=== PATIENT | male | born 1990 | race Caucasian/White ===

== ENCOUNTER 2023-03-19 18:48 | Observation (INO) ==
--- NOTE | 2023-03-19 19:36 | DR.EXTPAIN ---
HPI Time seen Time Seen by Provider: 03/19/23 19:34 PCP Primary Care Physician: IGGY HPI Comment HPI Comment: Patient is 32yr old male in er with redness, streaking and pain left forearm times one day. He had laceration to right wrist 2 days ago that was repaired 2 days ago. Redness started yesterday and streaking today. Denies fever or drainage. Complaint/Symptoms Chief Complaint Doctor Comments: Redness, pain and streaking left forearm times one day. Chief Complaint:: PT AMBULATORY IN ED STATING HE CUT LEFT WRIST ON 03/17/23 HAD SUTURES HERE. NOW HAS RED STREAK GOING UP ARM. STATES HE WENT TO [facility] AND WAS TOLD TO COME TO THE ER THAT HE MAY NEED IV ANTIBIOTICS. COVID-19 Coronavirus risk:travel/contact w/high risk person: No Has patient experienced Coronavirus symptoms: No Nurses notes reviewed Nurses Notes Review: Yes Source History Provided: Patient Mode of arrival Mode of Arrival: Ambulatory Timing Onset of Chief Complaint: 03/19/23 PMH PMH Past Medical History: No Past Surgical History: No Surgical History: No History Family History History of Family Medical Conditions: Yes Family Medical History: Hypertension Social History Does patient currently use any type of tobacco product: Yes Have you used tobacco products in the last 12 months: Yes Type of Tobacco Use: Cigarettes Does any household member use tobacco: No Alcohol Use: None Do you use any recreational Drugs:: No Lives With: Family Lives Where: Home Travel Risk Coronavirus risk:travel/contact w/high risk person: No Has patient experienced Coronavirus symptoms: No Infectious screening In the last 2 months have you had wt loss of >10#?: NO Have you had fever, night sweats or hemotysis?: No Have you traveled outside the country in the last 6 months?: No Isolation: Standard ROS Review of Systems Constitutional: No Symptoms Reported; negative Fever, Weakness or Fatigue Eyes: No Symptoms Reported; negative Blurred Vision ENTM: No Symptoms Reported; negative Nose Discharge or Nose Congestion Respiratoy: No Symptoms Reported; negative Moist Cough or Short of Breath Cardiovascular: No Symptoms Reported; negative Chest Pain Gastrointestinal/Abdominal: negative Abdominal Pain, Diarrhea or Vomiting Genitourinary: No Symptoms Reported; negative Dysuria Neurological: No Symptoms Reported; negative Headache, Weakness or Dizziness Musculoskeletal: Forearm (Redness and pain left forearm.) Integumentary: Wound (Redness left wrist with intact sutures and streaking to elbow. No drainage.) Hematologic/Lymphatic: No Symptoms Reported; negative Swollen Glands Endocrine: No Symptoms Reported; negative Increased Thirst or Increased Urine Psychiatric: No Symptoms Reported All Other Systems: Reviewed and Negative PE Vital Signs Vitals: Vital Signs Temperature 99.5 F Pulse Rate 82 Respiratory Rate 19 Respiratory Rate 20 Respiratory Rate 20 Blood Pressure 155/81 O2 Sat by Pulse Oximetry 100 General Limitations: No Limitations General Appearance: Alert and In No Apparent Distress Head Head Exam: Normal Inspection and Atraumatic Eyes Eye exam: Normal Appearance; negative Scleral Icterus or Conjunctival Injection ENT ENT Exam: Normal Exam, Normal Oropharynx, Normal External Ear Exam and TM's Normal Bilaterally Neck Neck Exam: Normal Inspection and Trachea Midline; negative Tenderness Chest Chest Inspection: Normal Inspection and Symmetric Chest Wall Rise; negative Tenderness Respiratory Respiratory Exam: Normal Lung Sounds Bilat; negative Accessory Muscle Use, Chest Wall Tenderness or Respiratory Distress Respiratory Exam: Bilateral: Clear to Auscultation Cardiovascular Cardiovascular Exam: Regular Rate, Normal Rhythm and Normal Heart Sounds; negative Systolic Murmur or Diastolic Murmur Abdominal Exam Abdominal Exam: Normal Inspection, Normal Bowel Sounds and Soft; negative Tenderness Extremities Extremities Exam: Tenderness (Redness and tenderness left forearm with streaking.) Back Back Exam: Normal Inspection Neurological Neurological Exam: Alert and Oriented X3; negative Motor Sensory Deficit Psychiatric Psychiatric Exam: Normal Affect and Normal Mood Skin Skin Exam: Other (Redness and streaking left forearm with tenderness.) MDM Differential Diagnosis Differential Diagnosis: Laceration (Infected laceration left wrist.) and Other (Cellulitis left forearm.) COURSE Treatment Treatment: See orders done while patient was in er. Labs discussed with patient. Patient was given Clindamycin and NS while in er. He was admitted to hospital for further management. Consultation Consultation Comments: Discussed patient with dr. Rogers. He will admit patient. ROR Labs Reviewed Laboratory Results Reviewed?: Yes 03/21/23 05:13 03/21/23 05:13 Laboratory: 03/19/23 20:00 Blood Blood Culture - Preliminary 03/19/23 19:50 Blood Blood Culture - Preliminary WBC 8.8 X10^3/uL (3.6-10.0) 03/19/23 19:50 RBC 4.69 X10^6/uL (4.7-6.0) L 03/19/23 19:50 Hgb 14.0 g/dL (13.5-18.0) 03/19/23 19:50 Hct 40.2 % (42.0-54.0) L 03/19/23 19:50 MCV 85.9 fL (80.0-100.0) 03/19/23 19:50 MCH 29.8 pg (27.0-34.0) 03/19/23 19:50 MCHC 34.7 g/dL (33.0-35.0) 03/19/23 19:50 RDW 13.3 % (11.6-16.5) 03/19/23 19:50 Plt Count 213 X10^3/uL (150.0-450.0) 03/19/23 19:50 MPV 10.3 fL (7.4-11.0) 03/19/23 19:50 Neut % (Auto) 59.9 % (42.0-75.0) 03/19/23 19:50 Lymph % (Auto) 29.4 % (21.0-51.0) 03/19/23 19:50 [place] % (Auto) 8.2 % (0.0-13.0) 03/19/23 19:50 Eos % (Auto) 1.0 % (0.9-2.9) 03/19/23 19:50 Baso % (Auto) 1.5 % (0.2-1.0) H 03/19/23 19:50 Neut # (Auto) 5.3 x10^3/uL (2.2-4.8) H 03/19/23 19:50 Lymph # (Auto) 2.6 X10^3/uL (1.3-2.9) 03/19/23 19:50 [place] # (Auto) 0.7 x10^3/uL (0.3-0.8) 03/19/23 19:50 Eos # (Auto) 0.1 x10^3/uL (0.0-0.2) 03/19/23 19:50 Baso # (Auto) 0.1 X10^3/uL (0.0-0.1) 03/19/23 19:50 Absolute Nucleated RBC 0.0 /100WBC 03/19/23 19:50 Sodium 138 mmol/L (136-145) 03/19/23 19:50 Corrected Sodium TNP 03/19/23 19:50 Potassium 3.5 mmol/L (3.5-5.1) 03/19/23 19:50 Chloride 100 mmol/L (98-107) 03/19/23 19:50 Carbon Dioxide 28.3 mmol/L (21-32) 03/19/23 19:50 BUN 11 mg/dL (7-18) 03/19/23 19:50 Creatinine 0.96 mg/dL (0.70-1.30) 03/19/23 19:50 Est GFR (MDRD) Af Amer > 60 (>60) 03/19/23 19:50 Est GFR (MDRD) Non-Af > 60 (>60) 03/19/23 19:50 Glucose 103 mg/dL (65-99) H 03/19/23 19:50 Calcium 8.6 mg/dL (8.5-10.1) 03/19/23 19:50 Corrected Calcium TNP 03/19/23 19:50 Total Bilirubin 0.30 mg/dL (0.2-1.0) 03/19/23 19:50 AST 20 Units/L (15-37) 03/19/23 19:50 ALT 37 Units/L (12-78) 03/19/23 19:50 Alkaline Phosphatase 112 Units/L (46-116) 03/19/23 19:50 Total Protein 7.4 g/dL (6.4-8.2) 03/19/23 19:50 Albumin 3.9 g/dL (3.4-5.0) 03/19/23 19:50 Globulin 3.5 g/dL (2.5-4.5) 03/19/23 19:50 Albumin/Globulin Ratio 1.1 Ratio (1.1-2.1) 03/19/23 19:50 Opioid Opioid Risk Tool Age (Arnulfo box if 16-45): Yes History of Preadolescent Sexual Abuse: No Total: 1 Total Score Risk Category: Low Risk Copyright: Tom CORONEL predicting aberrant behaviors Discharge Plan Diagnosis Discharge Problem: Cellulitis, Infected wound Discharge Plan Patient Disposition: ADMITTED INPATIENT Condition: Stable Discharge Comment: RETURN TO ER IF WORSE. Orders to Discharge Patient Discharge Orders: Discharge (Routine); Ordered 03/21/23 Ordered By: JEANMARIE ROGERS
[2023-03-19] MEDS ORDERED: TORADOL 30 MG VIAL IVP ONE (19:39)
[2023-03-19] MEDS ORDERED: CLEOCIN 600 MG IV PREMIX 600 MG/50 ML BAG IV ONE ×2 (19:39→19:54)
[2023-03-19] MEDS ORDERED: TORADOL 30 MG VIAL ONE (19:54)
[2023-03-19 20:07] LABS: BASOPHILS # (AUTO) 0.1 X10^3/uL (0.0-0.1); BASOPHILS % (AUTO) 1.5 % (0.2-1.0); EOSINOPHILS # (AUTO) 0.1 x10^3/uL (0.0-0.2); HEMATOCRIT 40.2 % (42.0-54.0); LYMPHOCYTES # (AUTO) 2.6 X10^3/uL (1.3-2.9); LYMPHOCYTES % (AUTO) 29.4 % (21.0-51.0); MEAN CORPUSCULAR HEMOGLOBIN 29.8 pg (27.0-34.0); MEAN CORPUSCULAR HGB CONC 34.7 g/dL (33.0-35.0); MEAN CORPUSCULAR VOLUME 85.9 fL (80.0-100.0); MEAN PLATELET VOLUME 10.3 fL (7.4-11.0); MONOCYTES # (AUTO) 0.7 x10^3/uL (0.3-0.8); MONOCYTES % (AUTO) 8.2 % (0.0-13.0); NEUTROPHILS # (AUTO) 5.3 x10^3/uL (2.2-4.8); NEUTROPHILS % (AUTO) 59.9 % (42.0-75.0); PLATELET COUNT 213 X10^3/uL (150.0-450.0); RED BLOOD COUNT 4.69 X10^6/uL (4.7-6.0); RED CELL DISTRIBUTION WIDTH 13.3 % (11.6-16.5); WHITE BLOOD COUNT 8.8 X10^3/uL (3.6-10.0)
[2023-03-19 20:20] LABS: ALANINE AMINOTRANSFERASE 37 Units/L (12-78); ALBUMIN 3.9 g/dL (3.4-5.0); ALKALINE PHOSPHATASE 112 Units/L (46-116); ASPARTATE AMINO TRANSFERASE 20 Units/L (15-37); BLOOD UREA NITROGEN 11 mg/dL (7-18); CALCIUM 8.6 mg/dL (8.5-10.1); CARBON DIOXIDE 28.3 mmol/L (21-32); CHLORIDE 100 mmol/L (98-107); CREATININE 0.96 mg/dL (0.70-1.30); GLUCOSE 103 mg/dL (65-99); POTASSIUM 3.5 mmol/L (3.5-5.1); SODIUM 138 mmol/L (136-145); TOTAL PROTEIN 7.4 g/dL (6.4-8.2); eGFR NON BLACK RACES > 60 (>60)
[2023-03-19] MEDS ORDERED: ZOFRAN TAB 4 MG PO PRN (21:58)
[2023-03-19] MEDS ORDERED: VANCOMYCIN IV *PREMIX 1 G/200 ML BAG 1 G/200 ML PIGGYBACK IV ONE ×2 (21:58→21:59)
[2023-03-19] MEDS ORDERED: NS 1,000 ML IV 1,000 ML ONE (22:13)
[2023-03-19] MEDS ORDERED: TORADOL 30 MG VIAL IVP PRN (22:16)
[2023-03-19] MEDS: NS 1,000 ML IV 1,000 ML IV SCH (22:18)
[2023-03-19] MEDS ORDERED: PHARMACY CONSULT - VANCOMYCIN XX SCH (23:00)
[2023-03-19 23:05] VITALS: BMI 29.7
[2023-03-20 05:05] LABS: BASOPHILS # (AUTO) 0.1 X10^3/uL (0.0-0.1); BASOPHILS % (AUTO) 0.9 % (0.2-1.0); EOSINOPHILS # (AUTO) 0.1 x10^3/uL (0.0-0.2); EOSINOPHILS % (AUTO) 2.1 % (0.9-2.9); HEMATOCRIT 35.7 % (42.0-54.0); HEMOGLOBIN 12.6 g/dL (13.5-18.0); LYMPHOCYTES # (AUTO) 3.1 X10^3/uL (1.3-2.9); LYMPHOCYTES % (AUTO) 44.8 % (21.0-51.0); MEAN CORPUSCULAR HEMOGLOBIN 30.2 pg (27.0-34.0); MEAN CORPUSCULAR HGB CONC 35.3 g/dL (33.0-35.0); MEAN CORPUSCULAR VOLUME 85.7 fL (80.0-100.0); MEAN PLATELET VOLUME 10.4 fL (7.4-11.0); MONOCYTES # (AUTO) 0.8 x10^3/uL (0.3-0.8); MONOCYTES % (AUTO) 11.6 % (0.0-13.0); NEUTROPHILS # (AUTO) 2.8 x10^3/uL (2.2-4.8); NEUTROPHILS % (AUTO) 40.6 % (42.0-75.0); PLATELET COUNT 192 X10^3/uL (150.0-450.0); RED BLOOD COUNT 4.17 X10^6/uL (4.7-6.0); RED CELL DISTRIBUTION WIDTH 13.5 % (11.6-16.5); WHITE BLOOD COUNT 6.9 X10^3/uL (3.6-10.0)
[2023-03-20 05:16] LABS: ALANINE AMINOTRANSFERASE 36 Units/L (12-78); ALBUMIN 3.2 g/dL (3.4-5.0); ALKALINE PHOSPHATASE 96 Units/L (46-116); ASPARTATE AMINO TRANSFERASE 19 Units/L (15-37); BLOOD UREA NITROGEN 15 mg/dL (7-18); CALCIUM 8.3 mg/dL (8.5-10.1); CARBON DIOXIDE 27.6 mmol/L (21-32); CHLORIDE 104 mmol/L (98-107); COR CA(FOR HYPOALB) 8.9 mg/dL (8.5-10.1); COR NA(FOR HYPERGLY) 141 mmol/L (136-145); CREATININE 0.86 mg/dL (0.70-1.30); GLUCOSE 116 mg/dL (65-99); POTASSIUM 3.1 mmol/L (3.5-5.1); SODIUM 141 mmol/L (136-145); TOTAL PROTEIN 6.2 g/dL (6.4-8.2); eGFR NON BLACK RACES > 60 (>60)
[2023-03-20] MEDS ORDERED: CONSULT PHARMACY - POTASSIUM & MAGNESIUM XX SCH (06:00)
[2023-03-20] MEDS: NS 1,000 ML IV 1,000 ML IV SCH ×5 (08:52→21:19)
[2023-03-20] MEDS: K-DUR TAB 20 MEQ PO SCH ×2 (08:55→11:21)
[2023-03-20] MEDS: VANCOMYCIN IV *PREMIX 1.75 G/350 ML BAG 1.75 G/350 ML PIGGYBACK IV SCH ×2 (08:55→20:10)
[2023-03-20] MEDS ORDERED: VANCOMYCIN IV *PREMIX 1 G/200 ML BAG 1 G/200 ML PIGGYBACK IV SCH (09:00)
[2023-03-21 04:03] VITALS: RESP 18
[2023-03-21] MEDS: NS 1,000 ML IV 1,000 ML IV SCH (05:00)
[2023-03-21 06:22] LABS: BASOPHILS # (AUTO) 0.1 X10^3/uL (0.0-0.1); BASOPHILS % (AUTO) 1.1 % (0.2-1.0); EOSINOPHILS # (AUTO) 0.2 x10^3/uL (0.0-0.2); EOSINOPHILS % (AUTO) 2.4 % (0.9-2.9); HEMATOCRIT 35.4 % (42.0-54.0); HEMOGLOBIN 12.3 g/dL (13.5-18.0); LYMPHOCYTES # (AUTO) 3.1 X10^3/uL (1.3-2.9); LYMPHOCYTES % (AUTO) 40.6 % (21.0-51.0); MEAN CORPUSCULAR HEMOGLOBIN 29.8 pg (27.0-34.0); MEAN CORPUSCULAR HGB CONC 34.7 g/dL (33.0-35.0); MEAN CORPUSCULAR VOLUME 85.9 fL (80.0-100.0); MEAN PLATELET VOLUME 11.1 fL (7.4-11.0); MONOCYTES # (AUTO) 0.7 x10^3/uL (0.3-0.8); MONOCYTES % (AUTO) 9.2 % (0.0-13.0); NEUTROPHILS # (AUTO) 3.6 x10^3/uL (2.2-4.8); NEUTROPHILS % (AUTO) 46.7 % (42.0-75.0); PLATELET COUNT 181 X10^3/uL (150.0-450.0); RED BLOOD COUNT 4.13 X10^6/uL (4.7-6.0); RED CELL DISTRIBUTION WIDTH 13.4 % (11.6-16.5); WHITE BLOOD COUNT 7.7 X10^3/uL (3.6-10.0)
[2023-03-21 06:30] LABS: ALANINE AMINOTRANSFERASE 38 Units/L (12-78); ALBUMIN 3.1 g/dL (3.4-5.0); ALKALINE PHOSPHATASE 90 Units/L (46-116); ASPARTATE AMINO TRANSFERASE 19 Units/L (15-37); BLOOD UREA NITROGEN 9 mg/dL (7-18); CARBON DIOXIDE 26.5 mmol/L (21-32); CHLORIDE 105 mmol/L (98-107); COR CA(FOR HYPOALB) 8.7 mg/dL (8.5-10.1); CREATININE 0.85 mg/dL (0.70-1.30); GLUCOSE 109 mg/dL (65-99); POTASSIUM 3.6 mmol/L (3.5-5.1); SODIUM 139 mmol/L (136-145); TOTAL PROTEIN 6.1 g/dL (6.4-8.2); eGFR NON BLACK RACES > 60 (>60)
[2023-03-21] MEDS ORDERED: CONSULT PHARMACY - POTASSIUM & MAGNESIUM XX SCH (07:00)
--- NOTE | 2023-03-21 07:48 | DR.H&P ---
H&P History & Physical for Day of: H&P Date: 03/20/23 Chief Complaint Chief Complaint: Infected right forearm from cut on right wrist Allergies Allergies Allergy/AdvReac Type Severity Reaction Status Date / Time No Known Allergies Allergy Verified 03/19/23 19:02 History of Present Illness History of Present Illness: This is a pleasant 32-year-old white male who was seen in the vacate emergency department few days ago after he had cut his right wrist at work. Since then has gotten infected and he went to [facility] and they told him he needed to come [facility] for IV antibiotics. When he arrived to the ER he had some red streak going up his right arm and erythema of the right forearm that was marked. However this morning after IV antibiotics it is much improved and we will plan on getting 1 more day of IV antibiotics prior to discharge. Past Surgical History Surgical History: No History Family History Family Medical History: Hypertension Social History Does patient currently use any type of tobacco product: Yes Have you used tobacco products in the last 12 months: Yes Type of Tobacco Use: Cigarettes Does any household member use tobacco: No Alcohol Use: None Drug Use: None Labs 03/21/23 05:13 03/21/23 05:13 Labs: Laboratory WBC 7.7 X10^3/uL (3.6-10.0) 03/21/23 05:13 RBC 4.13 X10^6/uL (4.7-6.0) L 03/21/23 05:13 Hgb 12.3 g/dL (13.5-18.0) L 03/21/23 05:13 Hct 35.4 % (42.0-54.0) L 03/21/23 05:13 MCV 85.9 fL (80.0-100.0) 03/21/23 05:13 MCH 29.8 pg (27.0-34.0) 03/21/23 05:13 MCHC 34.7 g/dL (33.0-35.0) 03/21/23 05:13 RDW 13.4 % (11.6-16.5) 03/21/23 05:13 Plt Count 181 X10^3/uL (150.0-450.0) 03/21/23 05:13 MPV 11.1 fL (7.4-11.0) H 03/21/23 05:13 Neut % (Auto) 46.7 % (42.0-75.0) 03/21/23 05:13 Lymph % (Auto) 40.6 % (21.0-51.0) 03/21/23 05:13 [place] % (Auto) 9.2 % (0.0-13.0) 03/21/23 05:13 Eos % (Auto) 2.4 % (0.9-2.9) 03/21/23 05:13 Baso % (Auto) 1.1 % (0.2-1.0) H 03/21/23 05:13 Neut # (Auto) 3.6 x10^3/uL (2.2-4.8) 03/21/23 05:13 Lymph # (Auto) 3.1 X10^3/uL (1.3-2.9) H 03/21/23 05:13 [place] # (Auto) 0.7 x10^3/uL (0.3-0.8) 03/21/23 05:13 Eos # (Auto) 0.2 x10^3/uL (0.0-0.2) 03/21/23 05:13 Baso # (Auto) 0.1 X10^3/uL (0.0-0.1) 03/21/23 05:13 Absolute Nucleated RBC 0.1 /100WBC 03/21/23 05:13 Sodium 139 mmol/L (136-145) 03/21/23 05:13 Corrected Sodium TNP 03/21/23 05:13 Potassium 3.6 mmol/L (3.5-5.1) 03/21/23 05:13 Chloride 105 mmol/L (98-107) 03/21/23 05:13 Carbon Dioxide 26.5 mmol/L (21-32) 03/21/23 05:13 BUN 9 mg/dL (7-18) 03/21/23 05:13 Creatinine 0.85 mg/dL (0.70-1.30) 03/21/23 05:13 Est GFR (MDRD) Af Amer > 60 (>60) 03/21/23 05:13 Est GFR (MDRD) Non-Af > 60 (>60) 03/21/23 05:13 Glucose 109 mg/dL (65-99) H 03/21/23 05:13 Calcium 8.0 mg/dL (8.5-10.1) L 03/21/23 05:13 Corrected Calcium 8.7 mg/dL (8.5-10.1) 03/21/23 05:13 Magnesium 1.8 mg/dL (2.0-2.9) L 03/21/23 05:13 Total Bilirubin 0.20 mg/dL (0.2-1.0) 03/21/23 05:13 AST 19 Units/L (15-37) 03/21/23 05:13 ALT 38 Units/L (12-78) 03/21/23 05:13 Alkaline Phosphatase 90 Units/L (46-116) 03/21/23 05:13 Total Protein 6.1 g/dL (6.4-8.2) L 03/21/23 05:13 Albumin 3.1 g/dL (3.4-5.0) L 03/21/23 05:13 Globulin 3.0 g/dL (2.5-4.5) 03/21/23 05:13 Albumin/Globulin Ratio 1.0 Ratio (1.1-2.1) L 03/21/23 05:13 Review of Systems Constitutional: No Symptoms Reported Eyes: No Symptoms Reported ENT: No Symptoms Reported Respiratory: No Symptoms Reported Cardiovascular: No Symptoms Reported Gastrointestinal: No Symptoms Reported Genitourinary: No Symptoms Reported Musculoskeletal: No Symptoms Reported Skin: No Symptoms Reported Neurological: No Symptoms Reported Physical Exam Vital Signs: Vital Signs Temperature 98.3 F Temperature 98.8 F Pulse Rate [Brachial] 62 Pulse Rate [Brachial] 63 Respiratory Rate 18 Respiratory Rate 20 Blood Pressure [Right Arm] 143/70 Blood Pressure [Right Arm] 162/65 O2 Sat by Pulse Oximetry 98 O2 Sat by Pulse Oximetry 98 Oriented: Normal Eyes: Normal Ear: Normal Nose: Normal Respiratory: Clear Throughout Cardiovascular: Normal : Normal Auscultation: Bowel Sounds: Normal Palpation: Normal Tenderness: Normal Skin: Other (Mild right erythema on the right anterior forearm which is improved since admission) Musculoskeletal: Normal Psychiatric: Normal Mood Description: Calm Affect: Normal Speech Pattern: Clear and Appropriate Assessment/Plan (1) Cellulitis: Status: Acute Plan: Continue IV vancomycin and clindamycin. (2) Infected wound: Status: Acute Plan: Continue IV clindamycin and vancomycin Review H&P Reviewed: Yes Patient was examined?: Yes
[2023-03-21 08:12] VITALS: BP 129/69; PULSE 52; TEMP 97.6; O2SAT 96
[2023-03-21] MEDS: VANCOMYCIN IV *PREMIX 1.75 G/350 ML BAG 1.75 G/350 ML PIGGYBACK IV SCH (08:36)
[2023-03-21] MEDS ORDERED: K-DUR TAB 20 MEQ PO SCH (09:00)
[2023-03-21] MEDS ORDERED: PHARMACY COMMENT IV NR (20:30)
== END 2023-03-21 11:40 | disposition home or self-care (01) ==
LOC: MED/SURG 18:48 → ER 18:48 → MED/SURG 22:33
PROVIDERS: ADMIT Family Medicine; ATTEND Family Medicine
DX: L08.89 Other specified local infections of the skin and subcutaneous tissue; L03.113 Cellulitis of right upper limb

== ENCOUNTER 2023-04-04 21:26 | Inpatient (IN) ==
[2023-04-04 21:48] VITALS: BMI 29.6
[2023-04-04 22:13] LABS: BASOPHILS # (AUTO) 0.1 X10^3/uL (0.0-0.1); BASOPHILS % (AUTO) 0.9 % (0.2-1.0); EOSINOPHILS # (AUTO) 0.1 x10^3/uL (0.0-0.2); EOSINOPHILS % (AUTO) 1.2 % (0.9-2.9); HEMOGLOBIN 13.8 g/dL (13.5-18.0); LYMPHOCYTES # (AUTO) 3.5 X10^3/uL (1.3-2.9); LYMPHOCYTES % (AUTO) 33.1 % (21.0-51.0); MEAN CORPUSCULAR HGB CONC 35.4 g/dL (33.0-35.0); MEAN CORPUSCULAR VOLUME 84.7 fL (80.0-100.0); MONOCYTES # (AUTO) 1.1 x10^3/uL (0.3-0.8); MONOCYTES % (AUTO) 10.7 % (0.0-13.0); NEUTROPHILS # (AUTO) 5.7 x10^3/uL (2.2-4.8); NEUTROPHILS % (AUTO) 54.1 % (42.0-75.0); PLATELET COUNT 223 X10^3/uL (150.0-450.0); RED CELL DISTRIBUTION WIDTH 13.7 % (11.6-16.5); WHITE BLOOD COUNT 10.5 X10^3/uL (3.6-10.0)
[2023-04-04 22:16] LABS: INR 1.03 (0.8-1.3)
[2023-04-04 22:20] LABS: ALANINE AMINOTRANSFERASE 33 Units/L (12-78); ALBUMIN 3.9 g/dL (3.4-5.0); ALKALINE PHOSPHATASE 97 Units/L (46-116); ASPARTATE AMINO TRANSFERASE 12 Units/L (15-37); BLOOD UREA NITROGEN 12 mg/dL (7-18); CALCIUM 8.3 mg/dL (8.5-10.1); CARBON DIOXIDE 27.5 mmol/L (21-32); CHLORIDE 101 mmol/L (98-107); CREATININE 1.09 mg/dL (0.70-1.30); GLUCOSE 101 mg/dL (65-99); POTASSIUM 3.2 mmol/L (3.5-5.1); SODIUM 139 mmol/L (136-145); TOTAL PROTEIN 7.6 g/dL (6.4-8.2); eGFR NON BLACK RACES > 60 (>60)
[2023-04-04 22:24] LABS: LACTIC ACID 0.8 mmol/L (0.4-2.0)
--- NOTE | 2023-04-04 22:56 | DR.EXTPAIN ---
HPI Time seen Time Seen by Provider: 04/04/23 22:55 PCP Primary Care Physician: maribel Complaint/Symptoms Chief Complaint Doctor Comments: Patient had a laceration repaired on 03/17/2023.He returned to the ED on 03/19/20 and was admitted for treatment of c ellulitis. Patient was d/c on bactrim DS and clindamycin.He went to a walk-in clinic today because of swelling and redness of the Rt forearm. Patient was told to go to the ED. Patient denies:fever,extremity weakness,extremity numbness. Chief Complaint:: pt c/o redness and swelling to rt forearm pt had laceration to rt wrist on 03/17/23 from a precision grinder external sutures applied pt has been on clindamycin and septra ds but swelling and redness started today warm to touch with redness and swelling noted to rt forearm from wrist to elbow COVID-19 Coronavirus risk:travel/contact w/high risk person: No Has patient experienced Coronavirus symptoms: No Source History Provided: Patient Mode of arrival Mode of Arrival: Ambulatory Timing Onset of Chief Complaint: 04/04/23 PMH PMH Past Medical History: No Past Surgical History: No Surgical History: No History Family History History of Family Medical Conditions: Yes Family Medical History: Hypertension Social History Does patient currently use any type of tobacco product: Yes Have you used tobacco products in the last 12 months: Yes Type of Tobacco Use: Cigarettes Does any household member use tobacco: Yes Alcohol Use: None and Rarely Do you use any recreational Drugs:: No Lives With: Family Lives Where: Home Travel Risk Coronavirus risk:travel/contact w/high risk person: No Has patient experienced Coronavirus symptoms: No Infectious screening In the last 2 months have you had wt loss of >10#?: NO Have you had fever, night sweats or hemotysis?: No Have you traveled outside the country in the last 6 months?: No Isolation: Standard ROS Review of Systems Constitutional: negative Fever Eyes: No Symptoms Reported ENTM: No Symptoms Reported Respiratoy: No Symptoms Reported Cardiovascular: No Symptoms Reported Gastrointestinal/Abdominal: No Symptoms Reported Genitourinary: No Symptoms Reported Neurological: No Symptoms Reported Musculoskeletal: No Symptoms Reported, Joint Swelling (and erythema), Right and Forearm (swelling and erythema) Integumentary: No Symptoms Reported and Change in Color (Rt forearm and Rt wrist joint) Hematologic/Lymphatic: No Symptoms Reported Endocrine: No Symptoms Reported Psychiatric: No Symptoms Reported All Other Systems: Reviewed and Negative PE Vital Signs Vitals: Vital Signs Temperature 99.8 F Pulse Rate [Right Radial] 56 Pulse Rate 79 Respiratory Rate 20 Respiratory Rate 18 Blood Pressure [Right Arm] 131/77 Blood Pressure 124/78 O2 Sat by Pulse Oximetry 98 O2 Sat by Pulse Oximetry 98 General Limitations: No Limitations General Appearance: Alert and In No Apparent Distress Head Head Exam: Normal Inspection Eyes Eye exam: Normal Appearance ENT ENT Exam: Normal Exam Neck Neck Exam: Normal Inspection Chest Chest Inspection: Normal Inspection Respiratory Respiratory Exam: Normal Lung Sounds Bilat Respiratory Exam: Bilateral: Clear to Auscultation Cardiovascular Cardiovascular Exam: Regular Rate and Normal Rhythm Abdominal Exam Abdominal Exam: Normal Inspection, Normal Bowel Sounds and Soft Extremities Extremities Exam: Normal Inspection and Joint Swelling (Rt wrist joint) Upper Extremities Forearm Exam: Swelling (Rt forearm and wrist) and Erythema (Rt forearm and wrist) Back Back Exam: Normal Inspection Neurological Neurological Exam: Alert, Oriented X3 and CN II-XII Intact Psychiatric Psychiatric Exam: Normal Affect and Normal Mood Skin Skin Exam: Warm, Dry, Intact and Normal Color MDM Differential Diagnosis Differential Diagnosis: Other (Cellulitis,Abscess) COURSE Treatment Treatment: Patient presents with recurrent Cellulitis Rt forearm and wrist.Patient was given vancomycin 1500mg iv in the ED. Discussed case with Dr Rogers.Dr Rogers has accepted patient to his service. Patient has been stable in the ED ROR Labs Reviewed Laboratory Results Reviewed?: Yes 04/04/23 22:00 04/04/23 22:00 Laboratory: WBC 10.5 X10^3/uL (3.6-10.0) H 04/04/23 22:00 RBC 4.60 X10^6/uL (4.7-6.0) L 04/04/23 22:00 Hgb 13.8 g/dL (13.5-18.0) 04/04/23 22:00 Hct 39.0 % (42.0-54.0) L 04/04/23 22:00 MCV 84.7 fL (80.0-100.0) 04/04/23 22:00 MCH 30.0 pg (27.0-34.0) 04/04/23 22:00 MCHC 35.4 g/dL (33.0-35.0) H 04/04/23 22:00 RDW 13.7 % (11.6-16.5) 04/04/23 22:00 Plt Count 223 X10^3/uL (150.0-450.0) 04/04/23 22:00 MPV 10.0 fL (7.4-11.0) 04/04/23 22:00 Neut % (Auto) 54.1 % (42.0-75.0) 04/04/23 22:00 Lymph % (Auto) 33.1 % (21.0-51.0) 04/04/23 22:00 [place] % (Auto) 10.7 % (0.0-13.0) 04/04/23 22:00 Eos % (Auto) 1.2 % (0.9-2.9) 04/04/23 22:00 Baso % (Auto) 0.9 % (0.2-1.0) 04/04/23 22:00 Neut # (Auto) 5.7 x10^3/uL (2.2-4.8) H 04/04/23 22:00 Lymph # (Auto) 3.5 X10^3/uL (1.3-2.9) H 04/04/23 22:00 [place] # (Auto) 1.1 x10^3/uL (0.3-0.8) H 04/04/23 22:00 Eos # (Auto) 0.1 x10^3/uL (0.0-0.2) 04/04/23 22:00 Baso # (Auto) 0.1 X10^3/uL (0.0-0.1) 04/04/23 22:00 Absolute Nucleated RBC 0.0 /100WBC 04/04/23 22:00 PT 13.3 SECONDS (11.8-14.3) 04/04/23 22:00 INR Target Range - 04/04/23 22:00 INR 1.03 (0.8-1.3) 04/04/23 22:00 APTT 29.9 SECONDS (22.9-36.5) 04/04/23 22:00 PTT Comment - 04/04/23 22:00 Sodium 139 mmol/L (136-145) 04/04/23 22:00 Corrected Sodium TNP 04/04/23 22:00 Potassium 3.2 mmol/L (3.5-5.1) L 04/04/23 22:00 Chloride 101 mmol/L (98-107) 04/04/23 22:00 Carbon Dioxide 27.5 mmol/L (21-32) 04/04/23 22:00 BUN 12 mg/dL (7-18) 04/04/23 22:00 Creatinine 1.09 mg/dL (0.70-1.30) 04/04/23 22:00 Est GFR (MDRD) Af Amer > 60 (>60) 04/04/23 22:00 Est GFR (MDRD) Non-Af > 60 (>60) 04/04/23 22:00 Glucose 101 mg/dL (65-99) H 04/04/23 22:00 Lactic Acid 0.8 mmol/L (0.4-2.0) 04/04/23 22:00 Calcium 8.3 mg/dL (8.5-10.1) L 04/04/23 22:00 Corrected Calcium TNP 04/04/23 22:00 Total Bilirubin 0.50 mg/dL (0.2-1.0) 04/04/23 22:00 AST 12 Units/L (15-37) L 04/04/23 22:00 ALT 33 Units/L (12-78) 04/04/23 22:00 Alkaline Phosphatase 97 Units/L (46-116) 04/04/23 22:00 Total Protein 7.6 g/dL (6.4-8.2) 04/04/23 22:00 Albumin 3.9 g/dL (3.4-5.0) 04/04/23 22:00 Globulin 3.7 g/dL (2.5-4.5) 04/04/23 22:00 Albumin/Globulin Ratio 1.1 Ratio (1.1-2.1) 04/04/23 22:00 Opioid Opioid Risk Tool Age (Arnulfo box if 16-45): Yes History of Preadolescent Sexual Abuse: No Total: 1 Total Score Risk Category: Low Risk Copyright: Tom CORONEL predicting aberrant behaviors Discharge Plan Diagnosis Discharge Problem: Right forearm cellulitis Discharge Plan Patient Disposition: ADMITTED INPATIENT Condition: Stable
[2023-04-04] MEDS ORDERED: VANCOMYCIN IV *PREMIX 1.5 G/300 ML BAG 1.5 G/300 ML PIGGYBACK IV ONE ×2 (22:59→23:00)
[2023-04-05] MEDS ORDERED: K-DUR TAB 20 MEQ PO ONE ×2 (00:43)
[2023-04-05] MEDS ORDERED: NS + KCL 20 MEQ/L 1,000 ML IV ONE ×2 (00:44→08:38)
[2023-04-05] MEDS: NS + KCL 20 MEQ/L 1,000 ML IV SCH ×4 (00:51→19:40)
[2023-04-05] MEDS ORDERED: PHARMACY CONSULT - VANCOMYCIN XX SCH (02:00)
[2023-04-05 05:31] LABS: BASOPHILS # (AUTO) 0.1 X10^3/uL (0.0-0.1); BASOPHILS % (AUTO) 0.9 % (0.2-1.0); EOSINOPHILS # (AUTO) 0.2 x10^3/uL (0.0-0.2); EOSINOPHILS % (AUTO) 1.9 % (0.9-2.9); HEMOGLOBIN 12.8 g/dL (13.5-18.0); LYMPHOCYTES # (AUTO) 3.1 X10^3/uL (1.3-2.9); LYMPHOCYTES % (AUTO) 33.3 % (21.0-51.0); MEAN CORPUSCULAR HEMOGLOBIN 29.7 pg (27.0-34.0); MEAN CORPUSCULAR HGB CONC 34.7 g/dL (33.0-35.0); MEAN CORPUSCULAR VOLUME 85.5 fL (80.0-100.0); MEAN PLATELET VOLUME 10.1 fL (7.4-11.0); MONOCYTES % (AUTO) 11.3 % (0.0-13.0); NEUTROPHILS # (AUTO) 4.9 x10^3/uL (2.2-4.8); NEUTROPHILS % (AUTO) 52.6 % (42.0-75.0); PLATELET COUNT 204 X10^3/uL (150.0-450.0); RED BLOOD COUNT 4.32 X10^6/uL (4.7-6.0); RED CELL DISTRIBUTION WIDTH 13.7 % (11.6-16.5); WHITE BLOOD COUNT 9.2 X10^3/uL (3.6-10.0)
[2023-04-05 05:49] LABS: ALANINE AMINOTRANSFERASE 32 Units/L (12-78); ALBUMIN 3.4 g/dL (3.4-5.0); ALKALINE PHOSPHATASE 85 Units/L (46-116); ASPARTATE AMINO TRANSFERASE 13 Units/L (15-37); BLOOD UREA NITROGEN 10 mg/dL (7-18); CALCIUM 8.1 mg/dL (8.5-10.1); CARBON DIOXIDE 24.6 mmol/L (21-32); CHLORIDE 104 mmol/L (98-107); GLUCOSE 106 mg/dL (65-99); POTASSIUM 3.7 mmol/L (3.5-5.1); SODIUM 138 mmol/L (136-145); TOTAL PROTEIN 6.9 g/dL (6.4-8.2); eGFR NON BLACK RACES > 60 (>60)
[2023-04-05] MEDS ORDERED: VANCOMYCIN IV *PREMIX 1 G/200 ML BAG 1 G/200 ML PIGGYBACK IV SCH (08:30)
[2023-04-05] MEDS ORDERED: VANCOMYCIN IV *PREMIX 1 G/200 ML BAG 1 G/200 ML PIGGYBACK IV ONE (08:35)
[2023-04-05] MEDS ORDERED: CIPRO IV 400 MG PREMIX* 400 MG/200 ML IV.SOLN. IV ONE (09:42)
[2023-04-05] MEDS: CIPRO IV 400 MG PREMIX* 400 MG/200 ML IV.SOLN. IV SCH ×2 (09:45→21:11)
[2023-04-05] MEDS ORDERED: VANCOMYCIN IV *PREMIX 1.5 G/300 ML BAG 1.5 G/300 ML PIGGYBACK IV SCH (11:00)
[2023-04-05] MEDS ORDERED: CLEOCIN 300 MG IV PREMIX 300 MG/50 ML BAG IV SCH (14:00)
[2023-04-05] MEDS ORDERED: CONSULT PHARMACY - POTASSIUM & MAGNESIUM XX SCH (14:00)
[2023-04-05] MEDS: CLEOCIN 600 MG IV PREMIX 600 MG/50 ML BAG IV SCH ×2 (14:57→22:18)
--- NOTE | 2023-04-05 21:09 | DR.H&P ---
H&P History & Physical for Day of: H&P Date: 04/05/23 Chief Complaint Chief Complaint: Right wrist infection Allergies Allergies Allergy/AdvReac Type Severity Reaction Status Date / Time No Known Allergies Allergy Verified 03/19/23 19:02 History of Present Illness History of Present Illness: This is a pleasant 36-year-old white male known to me. I had recently had him in the hospital for right wrist infection after surgical repair of the laceration and cellulitis of his right forearm. He was here in the hospital a week 2 weeks ago several days after having a surgical repair of his right wrist after a laceration at work. After his last admission he was started on IV clindamycin and vancomycin and his symptoms and condition was improving. His cellulitis was resolving however he only stayed for just over 24 hours receiving IV antibiotics. He was stated he was going to go AMA unless we released the site changing to p.o. clindamycin and Bactrim DS for 1 week and discharge him home. He tells me for a while he was getting better on the oral antibiotics and completely cleared up however but the cellulitis has returned after treatment. He was started on vancomycin IV last night in the emergency department and this morning it is much improved. I will stop that today and see if he improves on IV clindamycin and ciprofloxacin and if he does well overnight with this and his cellulitis is improving I will plan on discharging him on only his oral antibiotics. Past Surgical History Surgical History: No History Family History Family Medical History: Hypertension Social History Does patient currently use any type of tobacco product: Yes Have you used tobacco products in the last 12 months: Yes Type of Tobacco Use: Cigarettes Does any household member use tobacco: Yes Alcohol Use: None and Rarely Drug Use: None Medications Home Medications: Home Medications Medication Instructions Recorded Confirmed Type NK 04/05/23 04/05/23 History Labs 04/05/23 05:15 04/05/23 05:15 Labs: Laboratory WBC 9.2 X10^3/uL (3.6-10.0) 04/05/23 05:15 RBC 4.32 X10^6/uL (4.7-6.0) L 04/05/23 05:15 Hgb 12.8 g/dL (13.5-18.0) L 04/05/23 05:15 Hct 37.0 % (42.0-54.0) L 04/05/23 05:15 MCV 85.5 fL (80.0-100.0) 04/05/23 05:15 MCH 29.7 pg (27.0-34.0) 04/05/23 05:15 MCHC 34.7 g/dL (33.0-35.0) 04/05/23 05:15 RDW 13.7 % (11.6-16.5) 04/05/23 05:15 Plt Count 204 X10^3/uL (150.0-450.0) 04/05/23 05:15 MPV 10.1 fL (7.4-11.0) 04/05/23 05:15 Neut % (Auto) 52.6 % (42.0-75.0) 04/05/23 05:15 Lymph % (Auto) 33.3 % (21.0-51.0) 04/05/23 05:15 [place] % (Auto) 11.3 % (0.0-13.0) 04/05/23 05:15 Eos % (Auto) 1.9 % (0.9-2.9) 04/05/23 05:15 Baso % (Auto) 0.9 % (0.2-1.0) 04/05/23 05:15 Neut # (Auto) 4.9 x10^3/uL (2.2-4.8) H 04/05/23 05:15 Lymph # (Auto) 3.1 X10^3/uL (1.3-2.9) H 04/05/23 05:15 [place] # (Auto) 1.0 x10^3/uL (0.3-0.8) H 04/05/23 05:15 Eos # (Auto) 0.2 x10^3/uL (0.0-0.2) 04/05/23 05:15 Baso # (Auto) 0.1 X10^3/uL (0.0-0.1) 04/05/23 05:15 Absolute Nucleated RBC 0.0 /100WBC 04/05/23 05:15 ESR 12 MM/HOUR (0-15) 04/05/23 10:00 PT 13.3 SECONDS (11.8-14.3) 04/04/23 22:00 INR Target Range - 08/23/23 22:00 INR 1.03 (0.8-1.3) 04/04/23 22:00 APTT 29.9 SECONDS (22.9-36.5) 04/04/23 22:00 PTT Comment - 04/04/23 22:00 Sodium 138 mmol/L (136-145) 04/05/23 05:15 Corrected Sodium TNP 04/05/23 05:15 Potassium 3.7 mmol/L (3.5-5.1) 04/05/23 05:15 Chloride 104 mmol/L (98-107) 04/05/23 05:15 Carbon Dioxide 24.6 mmol/L (21-32) 04/05/23 05:15 BUN 10 mg/dL (7-18) 04/05/23 05:15 Creatinine 0.90 mg/dL (0.70-1.30) 04/05/23 05:15 Est GFR (MDRD) Af Amer > 60 (>60) 04/05/23 05:15 Est GFR (MDRD) Non-Af > 60 (>60) 04/05/23 05:15 Glucose 106 mg/dL (65-99) H 04/05/23 05:15 Lactic Acid 0.8 mmol/L (0.4-2.0) 04/04/23 22:00 Calcium 8.1 mg/dL (8.5-10.1) L 04/05/23 05:15 Corrected Calcium TNP 04/05/23 05:15 Total Bilirubin 0.70 mg/dL (0.2-1.0) 04/05/23 05:15 AST 13 Units/L (15-37) L 04/05/23 05:15 ALT 32 Units/L (12-78) 04/05/23 05:15 Alkaline Phosphatase 85 Units/L (46-116) 04/05/23 05:15 C-Reactive Protein 45.90 mg/L (0-3.0) H 04/05/23 05:15 Total Protein 6.9 g/dL (6.4-8.2) 04/05/23 05:15 Albumin 3.4 g/dL (3.4-5.0) 04/05/23 05:15 Globulin 3.5 g/dL (2.5-4.5) 04/05/23 05:15 Albumin/Globulin Ratio 1.0 Ratio (1.1-2.1) L 04/05/23 05:15 Review of Systems Constitutional: No Symptoms Reported and Fever Eyes: No Symptoms Reported ENT: No Symptoms Reported Respiratory: No Symptoms Reported Cardiovascular: No Symptoms Reported Gastrointestinal: No Symptoms Reported Genitourinary: No Symptoms Reported Musculoskeletal: No Symptoms Reported Skin: No Symptoms Reported Neurological: No Symptoms Reported Physical Exam Vital Signs: Vital Signs Temperature 98.5 F Temperature 98.3 F Pulse Rate [Right Radial] 90 Pulse Rate [Right Radial] 66 Respiratory Rate 20 Respiratory Rate 20 Blood Pressure [Right Arm] 155/73 Blood Pressure [Right Arm] 117/67 O2 Sat by Pulse Oximetry 98 O2 Sat by Pulse Oximetry 97 Oriented: Normal Eyes: Normal Ear: Normal Nose: Normal Throat: Normal Respiratory: Clear Throughout Cardiovascular: Normal Auscultation: Bowel Sounds: Normal Palpation: Normal Tenderness: Normal Skin: Red, Tender and Hot Musculoskeletal: Normal Psychiatric: Normal Mood Description: Calm Affect: Normal Speech Pattern: Clear and Appropriate Assessment/Plan (1) Right forearm cellulitis: Status: Acute Plan: Since patient has received 1 IV dose of vancomycin and improved I will stop it to see if we can treating with IV antibiotics that we can treating with orally. I will start him on IV clindamycin and IV ciprofloxacin and if he is improving with this again I will change him to oral formulation and plan on discharging him tomorrow. I will also go ahead and check an ESR today and again tomorrow as well as a CRP. Review H&P Reviewed: Yes Patient was examined?: Yes
[2023-04-05] MEDS: TORADOL TAB PO PRN (21:20)
[2023-04-05] MEDS ORDERED: PHARMACY COMMENT IV ONE (21:30)
[2023-04-05 22:42] LABS: CREATININE 0.68 mg/dL (0.70-1.30); VANCOMYCIN,TROUGH 3.4 ug/mL (15-20)
[2023-04-06] MEDS: NS + KCL 20 MEQ/L 1,000 ML IV SCH ×4 (01:07→20:35)
[2023-04-06] MEDS: CLEOCIN 600 MG IV PREMIX 600 MG/50 ML BAG IV SCH ×3 (05:18→21:50)
[2023-04-06 06:13] LABS: BASOPHILS # (AUTO) 0.1 X10^3/uL (0.0-0.1); BASOPHILS % (AUTO) 0.9 % (0.2-1.0); EOSINOPHILS # (AUTO) 0.2 x10^3/uL (0.0-0.2); HEMATOCRIT 36.2 % (42.0-54.0); HEMOGLOBIN 12.6 g/dL (13.5-18.0); LYMPHOCYTES % (AUTO) 36.6 % (21.0-51.0); MEAN CORPUSCULAR HEMOGLOBIN 29.7 pg (27.0-34.0); MEAN PLATELET VOLUME 10.5 fL (7.4-11.0); MONOCYTES # (AUTO) 0.8 x10^3/uL (0.3-0.8); MONOCYTES % (AUTO) 9.6 % (0.0-13.0); NEUTROPHILS # (AUTO) 4.3 x10^3/uL (2.2-4.8); NEUTROPHILS % (AUTO) 50.9 % (42.0-75.0); PLATELET COUNT 176 X10^3/uL (150.0-450.0); RED BLOOD COUNT 4.26 X10^6/uL (4.7-6.0); RED CELL DISTRIBUTION WIDTH 13.7 % (11.6-16.5); WHITE BLOOD COUNT 8.3 X10^3/uL (3.6-10.0)
[2023-04-06 06:33] LABS: ERYTHROCYTE SEDIMENTATION RATE 15 MM/HOUR (0-15)
[2023-04-06 06:45] LABS: ALANINE AMINOTRANSFERASE 27 Units/L (12-78); ALKALINE PHOSPHATASE 79 Units/L (46-116); ASPARTATE AMINO TRANSFERASE 14 Units/L (15-37); BLOOD UREA NITROGEN 8 mg/dL (7-18); CARBON DIOXIDE 23.6 mmol/L (21-32); CHLORIDE 105 mmol/L (98-107); COR CA(FOR HYPOALB) 8.8 mg/dL (8.5-10.1); CREATININE 0.81 mg/dL (0.70-1.30); GLUCOSE 98 mg/dL (65-99); MAGNESIUM 1.8 mg/dL (2.0-2.9); POTASSIUM 3.8 mmol/L (3.5-5.1); SODIUM 137 mmol/L (136-145); TOTAL PROTEIN 6.5 g/dL (6.4-8.2); eGFR NON BLACK RACES > 60 (>60)
[2023-04-06] MEDS ORDERED: CONSULT PHARMACY - POTASSIUM & MAGNESIUM XX SCH (08:00)
[2023-04-06] MEDS: CIPRO IV 400 MG PREMIX* 400 MG/200 ML IV.SOLN. IV SCH ×2 (09:09→20:35)
[2023-04-06] MEDS: MAG-OX TAB PO SCH ×2 (09:10→20:35)
[2023-04-06] MEDS ORDERED: NS 100 ML IV 100 ML ONE (09:54)
[2023-04-06] MEDS ORDERED: OMNIPAQUE 350 mg/mL 100 mL BTL 100 ML ONE (09:54)
[2023-04-06] MEDS ORDERED: PHARMACY CONSULT - VANCOMYCIN XX SCH (10:00)
[2023-04-06] MEDS ORDERED: VANCOMYCIN IV *PREMIX 1.5 G/300 ML BAG 1.5 G/300 ML PIGGYBACK IV ONE (10:30)
--- NOTE | 2023-04-06 11:02 | CT ---
HISTORYCellulitis right armSTUDYCT right upper extremity with contrastTechnique: Axial post-contrast images with coronal and sagittal reformats. Dose reduction procedures were used with mA/kv adjusted for body size.COMPARISONNoneFINDINGSImaging was obtained from the level of the distal right humeral shaft through the entire right hand. There is diffuse subcutaneous fat stranding indicative of edema originating just above the elbow joint and extending medially and posteriorly and more distally also anteriorly to the level of the wrist. More distally subcutaneous edema is not identified. There are no focal drainable fluid collections identified. There is no involvement of the muscular compartments. The distal humerus, elbow joint, radius, ulna, and bones of the hand and wrist are intact. No fracture, lytic, or blastic lesion is identified. No abnormal periosteal reaction is identified. No elbow joint effusion is identified. No definite vascular abnormality identified.IMPRESSIONSubcutaneous soft tissue swelling as described above from just above the elbow to the wrist but without evidence for focal drainable fluid collection to suggest abscess and no involvement of the muscular compartment bones or joints. Findings most consistent with cellulitis. If there is still remains a strong suspicion of abscess, MRI with and without contrast would be of further diagnostic value.Electronically signed by: REYNALDO BERMAN (Apr 06, 2023 11:01:02)
[2023-04-06] MEDS: TORADOL TAB PO PRN (19:39)
--- NOTE | 2023-04-06 20:46 | PCM.PROG ---
Progress Note Progress Note for Day of Date of Exam: 04/06/23 Subjective Subjective: The patient is feeling fine this morning, he reports. He still has erythema and tightness of his right forearm, with some edema. The amount of erythema is about the same as it was yesterday. We stopped his vancomycin and started him on IV clindamycin and Cipro to see if he would respond to these antibiotics because we can change him to oral formulation. At the previous area of tissue repair, it appears to be more swollen and more erythematous than the previous day. I went ahead and ordered a CT scan but it shows no localized area of abscess formation and is consistent with cellulitis at this time. He has C- reactive protein level has decreased significantly from the previous day, so at this time, we will continue his current treatment with IV clindamycin 600 mg every 8 hours and ciprofloxacin 400 mg IV every 12 hours. I will go ahead and consult general surgeon Dr. Hope to see if he thinks the patient may need I&D. Past Medical Family Social History Allergies: Allergies No Known Allergies Allergy (Verified 03/19/23 19:02) Review of Systems ROS: No change since H&P Vital Signs and I&O's Vital Signs: Vital Signs Temperature 98.1 F Temperature 98.3 F Pulse Rate [Right Radial] 64 Pulse Rate [Right Radial] 67 Respiratory Rate 18 Respiratory Rate 19 Respiratory Rate 20 Blood Pressure [Right Arm] 130/68 Blood Pressure [Right Arm] 126/71 O2 Sat by Pulse Oximetry 98 O2 Sat by Pulse Oximetry 97 Intake and Output: Intake & Output 04/04/23 04/05/23 04/06/23 04/07/23 11:59 11:59 11:59 11:59 Intake Total 1000 / 1000 3444 / 3444 2457 / 2457 Output Total 0 / 0 Balance 1000 / 1000 3444 / 3444 2457 / 2457 Physical Exam Oriented: Normal Eyes: Normal Ear: Normal Nose: Normal Throat: Normal Cardiovascular: Normal Auscultation: Bowel Sounds: Normal Tenderness: Normal Skin: Red, Tender and Hot Musculoskeletal: Normal Psychiatric: Normal Mood Description: Calm Affect: Normal Speech Pattern: Clear and Appropriate Laboratory and Diagnostics 04/06/23 05:21 04/06/23 05:21 Labs: 04/04/23 22:25 Blood Blood Culture - Preliminary 04/04/23 22:00 Blood Blood Culture - Preliminary Laboratory WBC 8.3 X10^3/uL (3.6-10.0) 04/06/23 05:21 RBC 4.26 X10^6/uL (4.7-6.0) L 04/06/23 05:21 Hgb 12.6 g/dL (13.5-18.0) L 04/06/23 05:21 Hct 36.2 % (42.0-54.0) L 04/06/23 05:21 MCV 85.0 fL (80.0-100.0) 04/06/23 05:21 MCH 29.7 pg (27.0-34.0) 04/06/23 05:21 MCHC 35.0 g/dL (33.0-35.0) 04/06/23 05:21 RDW 13.7 % (11.6-16.5) 04/06/23 05:21 Plt Count 176 X10^3/uL (150.0-450.0) 04/06/23 05:21 MPV 10.5 fL (7.4-11.0) 04/06/23 05:21 Neut % (Auto) 50.9 % (42.0-75.0) 04/06/23 05:21 Lymph % (Auto) 36.6 % (21.0-51.0) 04/06/23 05:21 [place] % (Auto) 9.6 % (0.0-13.0) 04/06/23 05:21 Eos % (Auto) 2.0 % (0.9-2.9) 04/06/23 05:21 Baso % (Auto) 0.9 % (0.2-1.0) 04/06/23 05:21 Neut # (Auto) 4.3 x10^3/uL (2.2-4.8) 04/06/23 05:21 Lymph # (Auto) 3.0 X10^3/uL (1.3-2.9) H 04/06/23 05:21 [place] # (Auto) 0.8 x10^3/uL (0.3-0.8) 04/06/23 05:21 Eos # (Auto) 0.2 x10^3/uL (0.0-0.2) 04/06/23 05:21 Baso # (Auto) 0.1 X10^3/uL (0.0-0.1) 04/06/23 05:21 Absolute Nucleated RBC 0.1 /100WBC 04/06/23 05:21 ESR 15 MM/HOUR (0-15) 04/06/23 05:21 PT 13.3 SECONDS (11.8-14.3) 04/04/23 22:00 INR Target Range - 04/04/23 22:00 INR 1.03 (0.8-1.3) 04/04/23 22:00 APTT 29.9 SECONDS (22.9-36.5) 04/04/23 22:00 PTT Comment - 04/04/23 22:00 Sodium 137 mmol/L (136-145) 04/06/23 05:21 Corrected Sodium TNP 04/06/23 05:21 Potassium 3.8 mmol/L (3.5-5.1) 04/06/23 05:21 Chloride 105 mmol/L (98-107) 04/06/23 05:21 Carbon Dioxide 23.6 mmol/L (21-32) 04/06/23 05:21 BUN 8 mg/dL (7-18) 04/06/23 05:21 Creatinine 0.81 mg/dL (0.70-1.30) 04/06/23 05:21 Est GFR (MDRD) Af Amer > 60 (>60) 04/06/23 05:21 Est GFR (MDRD) Non-Af > 60 (>60) 04/06/23 05:21 Glucose 98 mg/dL (65-99) 04/06/23 05:21 Lactic Acid 0.8 mmol/L (0.4-2.0) 04/04/23 22:00 Calcium 8.0 mg/dL (8.5-10.1) L 04/06/23 05:21 Corrected Calcium 8.8 mg/dL (8.5-10.1) 04/06/23 05:21 Magnesium 1.8 mg/dL (2.0-2.9) L 04/06/23 05:21 Total Bilirubin 0.30 mg/dL (0.2-1.0) 04/06/23 05:21 AST 14 Units/L (15-37) L 04/06/23 05:21 ALT 27 Units/L (12-78) 04/06/23 05:21 Alkaline Phosphatase 79 Units/L (46-116) 04/06/23 05:21 C-Reactive Protein 23.00 mg/L (0-3.0) H 04/06/23 05:21 Total Protein 6.5 g/dL (6.4-8.2) 04/06/23 05:21 Albumin 3.0 g/dL (3.4-5.0) L 04/06/23 05:21 Globulin 3.5 g/dL (2.5-4.5) 04/06/23 05:21 Albumin/Globulin Ratio 0.9 Ratio (1.1-2.1) L 04/06/23 05:21 Vancomycin Trough 3.4 ug/mL (15-20) L 04/05/23 21:56 Plan (1) Right forearm cellulitis: Status: Acute Narrative Support Text: CRP has trended down however his ESR has gone from 12-15 however that remains in the normal range. CT scan of his forearm shows no abscess or fluid collection at this time. Plan: Since patient has received 1 IV dose of vancomycin and improved I will stop it to see if we can treating with IV antibiotics that we can treating with orally. I will start him on IV clindamycin and IV ciprofloxacin and if he is improving with this again I will change him to oral formulation and plan on discharging him tomorrow. I will also go ahead and check an ESR today and again tomorrow as well as a CRP.
[2023-04-06] MEDS: VANCOMYCIN IV *PREMIX 1 G/200 ML BAG 1 G/200 ML PIGGYBACK IV SCH (22:27)
[2023-04-07] MEDS: NS + KCL 20 MEQ/L 1,000 ML IV SCH ×3 (00:26→16:31)
[2023-04-07] MEDS: VANCOMYCIN IV *PREMIX 1 G/200 ML BAG 1 G/200 ML PIGGYBACK IV SCH (05:01)
[2023-04-07 06:06] LABS: ERYTHROCYTE SEDIMENTATION RATE 13 MM/HOUR (0-15)
[2023-04-07 06:09] LABS: BASOPHILS # (AUTO) 0.1 X10^3/uL (0.0-0.1); BASOPHILS % (AUTO) 1.2 % (0.2-1.0); EOSINOPHILS # (AUTO) 0.2 x10^3/uL (0.0-0.2); EOSINOPHILS % (AUTO) 2.4 % (0.9-2.9); HEMATOCRIT 34.6 % (42.0-54.0); HEMOGLOBIN 12.1 g/dL (13.5-18.0); LYMPHOCYTES # (AUTO) 3.1 X10^3/uL (1.3-2.9); LYMPHOCYTES % (AUTO) 38.8 % (21.0-51.0); MEAN CORPUSCULAR HEMOGLOBIN 29.9 pg (27.0-34.0); MEAN CORPUSCULAR HGB CONC 35.1 g/dL (33.0-35.0); MEAN CORPUSCULAR VOLUME 85.1 fL (80.0-100.0); MEAN PLATELET VOLUME 10.9 fL (7.4-11.0); MONOCYTES # (AUTO) 0.7 x10^3/uL (0.3-0.8); NEUTROPHILS # (AUTO) 3.9 x10^3/uL (2.2-4.8); NEUTROPHILS % (AUTO) 48.6 % (42.0-75.0); PLATELET COUNT 206 X10^3/uL (150.0-450.0); RED BLOOD COUNT 4.07 X10^6/uL (4.7-6.0); RED CELL DISTRIBUTION WIDTH 13.5 % (11.6-16.5)
[2023-04-07] MEDS: CLEOCIN 600 MG IV PREMIX 600 MG/50 ML BAG IV SCH ×3 (06:14→21:55)
[2023-04-07 06:21] LABS: ALANINE AMINOTRANSFERASE 28 Units/L (12-78); ALBUMIN 2.8 g/dL (3.4-5.0); ALKALINE PHOSPHATASE 82 Units/L (46-116); ASPARTATE AMINO TRANSFERASE 15 Units/L (15-37); BLOOD UREA NITROGEN 6 mg/dL (7-18); CALCIUM 7.8 mg/dL (8.5-10.1); CARBON DIOXIDE 24.3 mmol/L (21-32); CHLORIDE 106 mmol/L (98-107); COR CA(FOR HYPOALB) 8.8 mg/dL (8.5-10.1); CREATININE 0.79 mg/dL (0.70-1.30); GLUCOSE 97 mg/dL (65-99); POTASSIUM 3.4 mmol/L (3.5-5.1); SODIUM 138 mmol/L (136-145); TOTAL PROTEIN 6.3 g/dL (6.4-8.2); eGFR NON BLACK RACES > 60 (>60)
[2023-04-07] MEDS ORDERED: CONSULT PHARMACY - POTASSIUM & MAGNESIUM XX SCH (07:00)
[2023-04-07] MEDS: MAG-OX TAB PO SCH ×2 (08:19→20:23)
[2023-04-07] MEDS: CIPRO IV 400 MG PREMIX* 400 MG/200 ML IV.SOLN. IV SCH ×2 (08:20→20:25)
[2023-04-07] MEDS: TORADOL TAB PO PRN ×2 (08:22→22:55)
--- NOTE | 2023-04-07 13:06 | DR.PROGNOT ---
HOSPITAL PROGRESS NOTE Progress Note for Day of: Progress Note Date: 04/07/23 Chief Complaint Chief Complaint: slow improvement . still having area of cellulitis anterior wrist and forearm . c/o moderate pain . afebrile . Past Medical Family Social History Past Med/Fam/Surg Hx: No changes since H&P Allergies: Allergies No Known Allergies Allergy (Verified 03/19/23 19:02) Review Of Systems ROS: No change since H&P Vital Signs Vital Signs: Vital Signs Temperature 97.6 F Temperature 98.8 F Pulse Rate [Right Radial] 60 Pulse Rate [Right Radial] 62 Respiratory Rate 20 Respiratory Rate 20 Respiratory Rate 18 Respiratory Rate 18 Blood Pressure [Right Arm] 109/60 Blood Pressure [Right Arm] 133/63 O2 Sat by Pulse Oximetry 97 O2 Sat by Pulse Oximetry 96 Physical Exam Oriented: Normal Eyes: Normal Ear: Normal Nose: Normal Throat: Normal Cardiovascular: Normal GI:Auscultation: Normal GI:Palpation: Normal GI: Tenderness: Normal Skin: Other (3x4 cm area of cellulitis anterior wrist and forearm . no abscess ,no necrosis .normal ROM wrist .) Musculoskeletal: Normal Psychiatric: Normal Mood Description: Calm Affect: Normal Speech Pattern: Clear and Appropriate Laboratory and Diagnostics 04/07/23 05:24 04/07/23 05:24 Labs: 04/04/23 22:25 Blood Blood Culture - Preliminary 04/04/23 22:00 Blood Blood Culture - Preliminary Laboratory WBC 8.0 X10^3/uL (3.6-10.0) 04/07/23 05:24 RBC 4.07 X10^6/uL (4.7-6.0) L 04/07/23 05:24 Hgb 12.1 g/dL (13.5-18.0) L 04/07/23 05:24 Hct 34.6 % (42.0-54.0) L 04/07/23 05:24 MCV 85.1 fL (80.0-100.0) 04/07/23 05:24 MCH 29.9 pg (27.0-34.0) 04/07/23 05:24 MCHC 35.1 g/dL (33.0-35.0) H 04/07/23 05:24 RDW 13.5 % (11.6-16.5) 04/07/23 05:24 Plt Count 206 X10^3/uL (150.0-450.0) 04/07/23 05:24 MPV 10.9 fL (7.4-11.0) 04/07/23 05:24 Neut % (Auto) 48.6 % (42.0-75.0) 04/07/23 05:24 Lymph % (Auto) 38.8 % (21.0-51.0) 04/07/23 05:24 [place] % (Auto) 9.0 % (0.0-13.0) 04/07/23 05:24 Eos % (Auto) 2.4 % (0.9-2.9) 04/07/23 05:24 Baso % (Auto) 1.2 % (0.2-1.0) H 04/07/23 05:24 Neut # (Auto) 3.9 x10^3/uL (2.2-4.8) 04/07/23 05:24 Lymph # (Auto) 3.1 X10^3/uL (1.3-2.9) H 04/07/23 05:24 [place] # (Auto) 0.7 x10^3/uL (0.3-0.8) 04/07/23 05:24 Eos # (Auto) 0.2 x10^3/uL (0.0-0.2) 04/07/23 05:24 Baso # (Auto) 0.1 X10^3/uL (0.0-0.1) 04/07/23 05:24 Absolute Nucleated RBC 0.0 /100WBC 04/07/23 05:24 ESR 13 MM/HOUR (0-15) 04/07/23 05:24 PT 13.3 SECONDS (11.8-14.3) 04/04/23 22:00 INR Target Range - 04/04/23 22:00 INR 1.03 (0.8-1.3) 04/04/23 22:00 APTT 29.9 SECONDS (22.9-36.5) 04/04/23 22:00 PTT Comment - 04/04/23 22:00 Sodium 138 mmol/L (136-145) 04/07/23 05:24 Corrected Sodium TNP 04/07/23 05:24 Potassium 3.4 mmol/L (3.5-5.1) L 04/07/23 05:24 Chloride 106 mmol/L (98-107) 04/07/23 05:24 Carbon Dioxide 24.3 mmol/L (21-32) 04/07/23 05:24 BUN 6 mg/dL (7-18) L 04/07/23 05:24 Creatinine 0.79 mg/dL (0.70-1.30) 04/07/23 05:24 Est GFR (MDRD) Af Amer > 60 (>60) 04/07/23 05:24 Est GFR (MDRD) Non-Af > 60 (>60) 04/07/23 05:24 Glucose 97 mg/dL (65-99) 04/07/23 05:24 Lactic Acid 0.8 mmol/L (0.4-2.0) 04/04/23 22:00 Calcium 7.8 mg/dL (8.5-10.1) L 04/07/23 05:24 Corrected Calcium 8.8 mg/dL (8.5-10.1) 04/07/23 05:24 Magnesium 1.9 mg/dL (2.0-2.9) L 04/07/23 05:24 Total Bilirubin 0.20 mg/dL (0.2-1.0) 04/07/23 05:24 AST 15 Units/L (15-37) 04/07/23 05:24 ALT 28 Units/L (12-78) 04/07/23 05:24 Alkaline Phosphatase 82 Units/L (46-116) 04/07/23 05:24 C-Reactive Protein 11.50 mg/L (0-3.0) H 04/07/23 05:24 Total Protein 6.3 g/dL (6.4-8.2) L 04/07/23 05:24 Albumin 2.8 g/dL (3.4-5.0) L 04/07/23 05:24 Globulin 3.5 g/dL (2.5-4.5) 04/07/23 05:24 Albumin/Globulin Ratio 0.8 Ratio (1.1-2.1) L 04/07/23 05:24 Vancomycin Trough 3.4 ug/mL (15-20) L 04/05/23 21:56 Assessment and Plan 1: cellulitis Rt wrist . on IV Vancomycin . keep hand elevated . to follow in one week in the office . Problem Patient Problems: Patient Problems (Updated 04/05/23 @ 00:27 by Emily Cobb) Right forearm cellulitis (Acute) L03.113
[2023-04-07 13:10] LABS: CREATININE 0.72 mg/dL (0.70-1.30); VANCOMYCIN,TROUGH 6.1 ug/mL (15-20)
[2023-04-07] MEDS ORDERED: PHARMACY COMMENT IV ONE (13:30)
[2023-04-07] MEDS: VANCOMYCIN IV *PREMIX 1.5 G/300 ML BAG 1.5 G/300 ML PIGGYBACK IV SCH ×2 (13:45→22:31)
[2023-04-07] MEDS ORDERED: PHARMACY CONSULT - VANCOMYCIN XX SCH (14:00)
[2023-04-07 23:07] VITALS: TEMP 98
[2023-04-08] MEDS: NS + KCL 20 MEQ/L 1,000 ML IV SCH ×2 (03:25→09:50)
[2023-04-08] MEDS: CLEOCIN 600 MG IV PREMIX 600 MG/50 ML BAG IV SCH (05:01)
[2023-04-08] MEDS: VANCOMYCIN IV *PREMIX 1.5 G/300 ML BAG 1.5 G/300 ML PIGGYBACK IV SCH (05:40)
[2023-04-08 06:49] LABS: BASOPHILS # (AUTO) 0.1 X10^3/uL (0.0-0.1); BASOPHILS % (AUTO) 1.2 % (0.2-1.0); EOSINOPHILS # (AUTO) 0.2 x10^3/uL (0.0-0.2); EOSINOPHILS % (AUTO) 2.7 % (0.9-2.9); HEMATOCRIT 35.1 % (42.0-54.0); HEMOGLOBIN 12.2 g/dL (13.5-18.0); LYMPHOCYTES # (AUTO) 3.1 X10^3/uL (1.3-2.9); LYMPHOCYTES % (AUTO) 40.8 % (21.0-51.0); MEAN CORPUSCULAR HEMOGLOBIN 29.8 pg (27.0-34.0); MEAN CORPUSCULAR HGB CONC 34.7 g/dL (33.0-35.0); MEAN CORPUSCULAR VOLUME 85.9 fL (80.0-100.0); MEAN PLATELET VOLUME 10.2 fL (7.4-11.0); MONOCYTES # (AUTO) 0.6 x10^3/uL (0.3-0.8); MONOCYTES % (AUTO) 8.4 % (0.0-13.0); NEUTROPHILS # (AUTO) 3.6 x10^3/uL (2.2-4.8); NEUTROPHILS % (AUTO) 46.9 % (42.0-75.0); PLATELET COUNT 206 X10^3/uL (150.0-450.0); RED BLOOD COUNT 4.08 X10^6/uL (4.7-6.0); RED CELL DISTRIBUTION WIDTH 13.2 % (11.6-16.5); WHITE BLOOD COUNT 7.6 X10^3/uL (3.6-10.0)
[2023-04-08 07:10] LABS: ALANINE AMINOTRANSFERASE 31 Units/L (12-78); ALBUMIN 2.9 g/dL (3.4-5.0); ALKALINE PHOSPHATASE 83 Units/L (46-116); ASPARTATE AMINO TRANSFERASE 14 Units/L (15-37); BLOOD UREA NITROGEN 7 mg/dL (7-18); CARBON DIOXIDE 24.2 mmol/L (21-32); CHLORIDE 107 mmol/L (98-107); COR CA(FOR HYPOALB) 8.9 mg/dL (8.5-10.1); CREATININE 0.83 mg/dL (0.70-1.30); GLUCOSE 93 mg/dL (65-99); MAGNESIUM 1.8 mg/dL (2.0-2.9); POTASSIUM 3.8 mmol/L (3.5-5.1); SODIUM 142 mmol/L (136-145); TOTAL PROTEIN 6.4 g/dL (6.4-8.2); eGFR NON BLACK RACES > 60 (>60)
[2023-04-08] MEDS ORDERED: CONSULT PHARMACY - POTASSIUM & MAGNESIUM XX SCH (09:00)
[2023-04-08] MEDS ORDERED: K-DUR TAB 20 MEQ PO SCH (09:00)
[2023-04-08] MEDS: CIPRO IV 400 MG PREMIX* 400 MG/200 ML IV.SOLN. IV SCH (09:49)
[2023-04-08] MEDS: MAG-OX TAB PO SCH ×2 (09:49→11:45)
[2023-04-08] MEDS ORDERED: PHARMACY CONSULT - VANCOMYCIN XX SCH (13:30)
[2023-04-08] MEDS ORDERED: PHARMACY COMMENT IV ONE (13:30)
[2023-04-08 13:50] VITALS: BP 133/83; PULSE 64; RESP 16; O2SAT 99
[2023-04-08 14:16] LABS: CREATININE 0.79 mg/dL (0.70-1.30)
[2023-04-08 14:27] LABS: VANCOMYCIN,TROUGH 15.1 ug/mL (15-20)
[2023-04-08] MEDS ORDERED: MAG-OX TAB PO SCH (21:00)
== END 2023-04-08 02:12 | disposition home or self-care (01) | DRG 603 ==
LOC: ER 21:26 → U 21:26 → OBSVTOIN 04-05 00:34 → U 04-05 00:43 → MED/SURG 04-05 10:57
PROVIDERS: ADMIT Family Medicine; ATTEND Family Medicine